=== PATIENT | female | born 1935 | race Caucasian/White ===

== ENCOUNTER → 2016-07-11 | Outpatient (CLI) | payer MEDICARE ==
[2016-07-11 12:49] LABS: CHCM 33.4; HCT 39.6 % (34.0-46.0); HDW 2.36; HGB 13.7 gm/dL (11.4-16.0); MCH 31.2 pg (25.0-35.0); MCHC 34.5 g/dL (31.0-37.0); MCV 90.2 fL (80.0-100.0); RBC 4.39 m/uL (3.80-5.40); RDW 12.6 % (11.5-15.5); WBC 7.4 k/uL (3.8-10.6)
[2016-07-11 12:56] LABS: ALT 25 U/L (9-52); AST 19 U/L (14-36); Alkaline Phosphatase 59 U/L (38-126); Anion Gap 9 mmol/L; Blood Urea Nitrogen 22 mg/dL (7-17); Calcium 9.8 mg/dL (8.4-10.2); Carbon Dioxide 27 mmol/L (22-30); Chloride 103 mmol/L (98-107); Cholesterol 223 mg/dL (<200); Glucose 107 mg/dL (74-99); HDL Cholesterol 67 mg/dL (40-60); Non-African American GFR(MDRD) >60 (>60 ml/min/1.73 sqM); Potassium 4.5 mmol/L (3.5-5.1); Sodium 139 mmol/L (137-145); Total Bilirubin 0.8 mg/dL (0.2-1.3); Total Protein 7.3 g/dL (6.3-8.2); Triglycerides 109 mg/dL (<150)
[2016-07-11 16:01] LABS: Hemoglobin A1C 6.2 % (4.2-6.1)
--- NOTE | 2016-07-11 22:41 | WWHP ---
CHIEF COMPLAINT: Patient is here for her routine gynecologic exam and mammogram. HPI: This is a 80-year-old G4, P3-0-1-3 with an LMP of 1988. The patient is without gynecologic complaints and denies any postmenopausal bleeding. PAST MEDICAL HISTORY: Chronic hypertension, borderline diabetes, hyperlipidemia and osteopenia. MEDICATIONS: 1. Calcium supplement 500 mg b.i.d. 2. Vitamin D3 1000 units daily. 3. Lisinopril 1 daily. 4. Magnesium supplement 250 mg daily. 5. Metamucil daily p.r.n. ALLERGIES: No known drug allergies. Past surgical, TELEMETRY MONITOR histories are unchanged from the 2015 H&P. SOCIAL HISTORY: She denies tobacco, alcohol and drug use. She has been since 1956 and is not sexually active. FAMILY HISTORY: Brother had leukemia and melanoma. Another brother had diabetes and ND. Mother had gastric cancer. Sister had uterine cancer and diabetes. REVIEW OF SYSTEMS: She has gained 8 pounds over the last year. She denies respiratory, cardiac or GI problems. She denies maltreatment or falling. : She denies any significant urinary leakage, but occasionally has to get to the bathroom right away. PHYSICAL EXAM: Blood pressure 113/74. Height 5 feet 1/2 inch. Weight 158 pounds. Temperature 98.4, pulse 77. This is a well-developed, well-nourished white female who is alert and oriented x3, in no acute distress. HEENT is within normal limits. NECK: Supple without mass or thyromegaly. CHEST AND LUNGS: Clear to auscultation. HEART: Regular rate and rhythm. Breasts are without mass or discharge. There is central nipple inversion on both sides which she has had for many years. Axillary is negative for adenopathy. BACK: Negative for CVA tenderness. ABDOMEN: Soft, nontender, without palpable masses. PELVIC: External genitalia reveal moderate atrophy without lesions. Cervix and vagina reveal moderate atrophy without lesions. The uterus is midposition, nongravid size and nontender. There are no palpable adnexal masses or tenderness. Rectovaginal is negative for mass or tenderness and is negative for occult blood. EXTREMITIES: Nontender. IMPRESSION: 1. A 80-year-old menopausal female with moderate genital atrophy and otherwise unremarkable gynecologic exam. 2. Multiple medical problems. 3. History of osteopenia. PLAN: 1. Pap smear was deferred, since she had normal one less than 2 years ago. 2. Self-breast examination was discussed. 3. Mammogram will be done today. 4. The patient is requesting screening labs which she has routinely done here. This will include CBC, hemoglobin A1c, comprehensive chem panel, lipid profile and TSH. 5. She does get flu shots in the fall. 6. She will return in 1 year.
--- NOTE | 2016-07-12 11:57 | MM ---
Reason for exam: screening (asymptomatic). Last mammogram was performed 1 year and 5 months ago. History: Patient is postmenopausal. Physical Findings: A clinical breast exam by your physician is recommended on an annual basis and results should be correlated with mammographic findings. MG 3D Screening Mammo W/Cad Bilateral CC and MLO view(s) were taken. Prior study comparison: January 26, 2015, bilateral MG screening mammo w CAD. January 19, 2014, bilateral MG screening mammo w CAD. January 13, 2013, bilateral digital screening mammo w/CAD. There are scattered fibroglandular densities. No significant changes when compared with prior studies. ASSESSMENT: Negative, BI-RAD 1 RECOMMENDATION: Routine screening mammogram of both breasts in 1 year.
== END ==
LOC: WWCWWP 10:14
PROVIDERS: ATTEND Obstetrics & Gynecology
DX: Z12.31 Encounter for screening mammogram for malignant neoplasm of breast (principal); E11.9 Type 2 diabetes mellitus without complications; E78.5 Hyperlipidemia, unspecified; Z00.00 Encounter for general adult medical examination without abnormal findings
CPT/HCPCS: 80061; 80053; 84443; 83036; 85027; 77063; G0202

== ENCOUNTER → 2017-12-31 | Outpatient (CLI) | payer MEDICARE ==
[2017-12-31 11:19] VITALS: BP 123/60; PULSE 70; TEMP 96.6; BMI 28.3
--- NOTE | 2017-12-31 12:06 | P.HPOB ---
History of Present Illness H&P Date: 12/31/17 Chief Complaint: The patient is here for her routine gynecologic exam and mammogram. This is an 82-year-old with an LMP of 1988. The patient is without gynecologic complaints and denies any postmenopausal bleeding. Review of Systems She has lost 8 pounds over the last year. She denies respiratory, cardiac and G.I. problems. She denies maltreatment or problems with falling. : she denies any significant problems with urinary leakage, but sometimes has to get to the bathroom right away. Past Medical History Past Medical History: Diabetes Mellitus (Type II diabetes), Hyperlipidemia, Hypertension Additional Past Medical History / Comment(s): History of osteopenia. 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 History of Any Multi-Drug Resistant Organisms: None Reported Past Surgical History: Section (x3), Cholecystectomy Additional Past Surgical History / Comment(s): Benign neck cyst removed. Colonoscopy 2007 (4th). Past Psychological History: No Psychological Hx Reported Smoking Status: Never smoker Past Alcohol Use History: None Reported Past Drug Use History: None Reported Additional History: She is been a since April 2017. - Past Family History Brother(s) Family Medical History: Cancer (Leukemia) Additional Family Medical History / Comment(s): Another brother has diabetes. Mother Family Medical History: Cancer (Gastric) Sister(s) Family Medical History: Cancer (Uterine cancer), Diabetes Mellitus Medications and Allergies Home Medications Medication Instructions Recorded Confirmed Type Calcium Carbonate 500 mg PO BID 12/31/17 12/31/17 History Cholecalciferol [Vitamin D3] 1,000 unit PO DAILY 12/31/17 12/31/17 History Lisinopril [Zestril] 1 tablet PO DAILY 12/31/17 12/31/17 History Magnesium Oxide [Mag-Ox] 250 mg PO BID 12/31/17 12/31/17 History Allergies Allergy/AdvReac Type Severity Reaction Status Date / Time No Known Allergies Allergy Verified 12/31/17 12:02 Exam Vital Signs Temp Pulse BP 12/31/17 11:16 96.6 F L 70 123/60 Intake and Output 12/30/17 12/31/17 12/31/17 22:59 06:59 14:59 Other: Weight 68.039 kg Height 5'1", BMI 28.3. This is a well-developed well-nourished white female who is alert and oriented times 3 in no acute distress. HEENT: Within normal limits. NECK: Supple without mass or thyromegaly. CHEST AND LUNGS: Clear to auscultation. HEART: Regular rate and rhythm. BREASTS: Are without mass or discharge. There is bilateral central nipple inversion which she states has been this way for many years. AXILLARY EXAM: Negative for adenopathy. BACK: Negative for CVA tenderness. ABDOMEN: Soft, mildly obese, nontender, without palpable masses. PELVIC EXAM: Normal external genitalia moderate atrophy. Cervix and vagina appear normal with moderate atrophy. There is no unusual discharge. There is no evidence of prolapse. The uterus is midposition, nongravid size and nontender. There are no palpable adnexal masses or tenderness. RECTAL EXAM: rectovaginal exam is negative for mass or tenderness and is negative for occult blood. EXTREMITIES: Nontender. IMPRESSION: 1. 82-year-old menopausal female with normal gynecologic exam with moderate genital atrophy. 2. Multiple medical problems. 3. History of osteopenia. PLAN: 1. Pap smear was performed. 2. Self breast awareness was discussed with the patient. 3. Screening mammogram will be done today. 4. Osteoporosis prevention was discussed. Bone density testing will be done today. 5. The patient is requesting screening blood work to be done today. This will include CBC, hemoglobin A-1 C, comprehensive chem panel, lipid profile, and TSH. She is fasting. 6. I have recommended screening colonoscopy since it is been 10 years. She would like to discuss this with Dr. Rosario and Dr. Macdonald. 7. She is planning to get her flu shot in the near future. 8. She will return in one year.
--- NOTE | 2017-12-31 14:08 | BD ---
EXAMINATION TYPE: Axial Bone Density DATE OF EXAM: 12/31/2017 Comparison: Prior DEXA bone scan January 26, 2015 CLINICAL HISTORY: Height: 59.5 inches Weight: 150 FRAX RISK QUESTIONS: Alcohol (3 or more units per day): no Family History (Parent hip fracture): no Glucocorticoids (More than 3mos): no (Ex: prednisone, prednisolone, methylprednisolone, dexamethasone, and hydrocortisone). History of Fracture in Adulthood: yes Secondary Osteoporosis: 1. Type 1 Diabetes: no 2. Hyperthyroidism: no 3. Menopause before 45: no 4. Malnutrition: no 5. Chronic liver disease: no Rheumatoid Arthritis: no Current Tobacco Use: no RISK FACTORS HISTORY OF: Family History of Osteoporosis: not to patient's knowledge Active: yes Diet low in dairy products/other sources of calcium: no Postmenopausal woman: yes Take estrogen and/or progesterone medications: no Lost more than 2 inches in height since high school: unsure Frequent falls: no Poor Health: no Hyperparathyroidism: no Adrenal Insufficiency: no MEDICATIONS: Prednisone or other steroids: no Thyroid Medications:no Osteoporosis Medications: no Additional Medications: calcium & Vitamin D , blood pressure med Additional History: Post menopausal EXAM MEASUREMENTS: Bone mineral densitometry was performed using the [employer]. Bone mineral density as measured about the Lumbar spine is: ----- L1-L4(G/cm2): 1.331 T Score Values are as follows: ----- L2: 1.1 ----- L3: 1.3 ----- L4: 2.1 ----- L1-L4: 1.3 Bone mineral density has: Increased 1.0% since study of: 01/26/2015 Bone mineral density about the R hip (g/cm2): 0.755 Bone mineral density about the L hip (g/cm2)0.806: T Score values are as follows: -----R Neck: -2.0 -----L Neck: -1.7 -----R Total: -1.1 -----L Total: -0.7 Bone mineral density has: Decreased -3.8% since study of: 01/26/2015 IMPRESSION: Osteopenia (T Score between -2.5 and -1) remains present in both hips. Bone density felt falsely elev ated and low back due to reactive sclerosis. There remains slightly increased risk of fracture and the patient may be considered for treatment. Re-Screen 2-5 years. NOTE: T-SCORE=SD OF THE YOUNG ADULT MEAN.
[2017-12-31 14:32] LABS: HCT 41.1 % (34.0-46.0); HGB 13.5 gm/dL (11.4-16.0); MCH 29.8 pg (25.0-35.0); MCHC 32.8 g/dL (31.0-37.0); MCV 90.8 fL (80.0-100.0); Mean Platelet Volume 7.5; Platelet Count 218 k/uL (150-450); RBC 4.53 m/uL (3.80-5.40); RDW 13.1 % (11.5-15.5); WBC 7.9 k/uL (3.8-10.6)
[2017-12-31 15:22] LABS: Calcium 9.5 mg/dL (8.4-10.2); Potassium 4.5 mmol/L (3.5-5.1); Total Bilirubin 0.7 mg/dL (0.2-1.3)
[2017-12-31 20:57] LABS: Hemoglobin A1C 6.3 % (4.0-6.0)
--- NOTE | 2018-01-01 11:32 | MM ---
Reason for exam: screening (asymptomatic). Last mammogram was performed 1 year and 6 months ago. History: Patient is postmenopausal. Physical Findings: A clinical breast exam by your physician is recommended on an annual basis and results should be correlated with mammographic findings. MG 3D Screening Mammo W/Cad Bilateral CC and MLO view(s) were taken. Prior study comparison: July 11, 2016, bilateral MG 3d screening mammo w/cad. January 26, 2015, bilateral MG screening mammo w CAD. There are scattered fibroglandular densities. No significant changes when compared with prior studies. ASSESSMENT: Benign, BI-RAD 2 RECOMMENDATION: Routine screening mammogram of both breasts in 1 year.
== END | disposition home or self-care (01) ==
LOC: WWCWWP 10:06
PROVIDERS: ATTEND Obstetrics & Gynecology
DX: Z12.31 Encounter for screening mammogram for malignant neoplasm of breast (principal); M85.852 Other specified disorders of bone density and structure, left thigh; M85.851 Other specified disorders of bone density and structure, right thigh; Z78.0 Asymptomatic menopausal state; Z00.00 Encounter for general adult medical examination without abnormal findings; E78.5 Hyperlipidemia, unspecified; E11.9 Type 2 diabetes mellitus without complications; I10 Essential (primary) hypertension
CPT/HCPCS: 36415; 77063; 77067; 77080; 80053; 80061; 83036; 84443; 85027

== ENCOUNTER → 2019-01-07 | Outpatient (CLI) | payer MEDICARE ==
[2019-01-07 10:13] VITALS: BP 117/76; PULSE 74; RESP 18; TEMP 97.7; BMI 28.5
--- NOTE | 2019-01-07 11:32 | P.HPOB ---
History of Present Illness H&P Date: 01/07/19 Chief Complaint: The patient is here for her routine gynecologic exam and ma mmogram. This is an 83-year-old 013 with an LMP of 1988. The patient is without gynecologic complaints and denies any postmenopausal bleeding. Review of Systems Weight has been stable. She denies respiratory, cardiac and G.I. problems. She denies maltreatment or problems with falling. : she denies any significant problems with urinary leakage. She states occasionally she has to get to the bathroom right away. Past Medical History Past Medical History: Diabetes Mellitus, Hyperlipidemia, Hypertension Additional Past Medical History / Comment(s): Type 2 diabetes .History of osteopenia. 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 History of Any Multi-Drug Resistant Organisms: None Reported Past Surgical History: Section, Cholecystectomy Additional Past Surgical History / Comment(s): Benign neck cyst removed. Colonoscopy 2007 (4th). Past Psychological History: No Psychological Hx Reported Smoking Status: Never smoker Past Alcohol Use History: None Reported Past Drug Use History: None Reported Additional History: She has been a since 2018 and has not been sexually a ctive for many years. She lives on her own. - Past Family History Brother(s) Family Medical History: Cancer Additional Family Medical History / Comment(s): Leukemia. Another brother has diabetes. Mother Family Medical History: Cancer Additional Family Medical History / Comment(s): Gastric cancer. Sister(s) Family Medical History: Cancer, Diabetes Mellitus Additional Family Medical History / Comment(s): Uterine cancer. Medications and Allergies Home Medications Medication Instructions Recorded Confirmed Type Calcium Carbonate 500 mg PO BID 12/31/17 01/07/19 History Cholecalciferol [Vitamin D3] 1,000 unit PO DAILY 12/31/17 01/07/19 History Lisinopril [Zestril] 1 tablet PO DAILY 12/31/17 01/07/19 History Magnesium Oxide [Mag-Ox] 250 mg PO BID 12/31/17 01/07/19 History Allergies Allergy/AdvReac Type Severity Reaction Status Date / Time No Known Allergies Allergy Verified 01/07/19 10:13 Exam Vital Signs Temp Pulse Resp BP Pulse Ox 01/07/19 10:07 97.7 F 74 18 117/76 96 Intake and Output 01/06/19 01/07/19 01/07/19 22:59 06:59 14:59 Other: Weight 68.492 kg Height 5 feet 1 inch, weight 151 pounds, BMI 28.5. This is a well-developed well-nourished white female who is alert and oriented times 3 in no acute distress. HEENT: Within normal limits. NECK: Supple without mass or thyromegaly. CHEST AND LUNGS: Clear to auscultation. HEART: Regular rate and rhythm. BREASTS: Are without mass or discharge. AXILLARY EXAM: Negative for adenopathy. BACK: Negative for CVA tenderness. ABDOMEN: Soft, nontender, without palpable masses. PELVIC EXAM: Normal external genitalia with moderate atrophy. Cervix and vagina appear normal is moderate atrophy. There is no unusual discharge. There is no evidence of prolapse. The uterus is atrophic, midposition, nongravid size and nontender. There are no palpable adnexal masses or tenderness. RECTAL EXAM: She has noninflamed external hemorrhoids. Rectovaginal exam is negative for mass or tenderness and is negative for occult blood. EXTREMITIES: Nontender. IMPRESSION: 1. 83-year-old menopausal female with normal gynecologic exam. 2. History of osteopenia. PLAN: 1. Pap smears have been discontinued since she has had adequate screening(neg 2017,2015,2013,2010), no history of cervical problems and is greater than 65 years of age. 2. Self breast awareness was discussed with the patient. 3. Screening mammogram will be done today. 4. Osteoporosis prevention was discussed. I have stressed the importance of adequate calcium, vitamin D and regular exercise. Recommended amounts of calcium and vitamin D were also discussed. Bone density testing will be done in 1-2 years since her last one was done on 12/31/2017. 5. The patient is requesting screening blood work. This will be drawn today and will include CBC, hemoglobin A1c, comprehensive chem panel, lipid profile, and TSH. She has fasted for the last 12 hours. She has an appointment with Dr. Rosario, her primary care physician, in one week. She states she will go over the test results with Dr. Rosario. 6. I have recommended screening colonoscopy since it has been about 11 years since her last one. She will discuss this with Dr. Rosario to review her options for colorectal screening. 7. She did receive her flu shot this fall. 8. The patient was advised to return in 1-2 years for her well woman examination.
[2019-01-07 14:00] LABS: HCT 41.7 % (34.0-46.0); MCH 28.5 pg (25.0-35.0); MCHC 31.3 g/dL (31.0-37.0); Mean Platelet Volume 6.6; Platelet Count 239 k/uL (150-450); RBC 4.58 m/uL (3.80-5.40)
[2019-01-07 18:36] LABS: African American GFR (CKD) 54.5 (60.0-200.0); Albumin 4.5 g/dL (3.80-4.90); Albumin/Globulin Ratio 2.05 (1.60-3.17); Anion Gap 6.4 mmol/L (4.00-12.00); BUN/Creat Ratio 24.55 Ratio (12.00-20.00); Calcium 9.9 mg/dL (8.7-10.3); Carbon Dioxide 28.6 mmol/L (21.6-31.8); Chol/HDL Ratio 3.67; Globulin 2.2 g/dL (1.6-3.3); LDL Cholesterol,Calculated 126.8 mg/dL (0.0-131.0); Potassium 4.9 mmol/L (3.5-5.5); Total Bilirubin 0.6 mg/dL (0.3-1.2); Total Protein 6.7 g/dL (6.2-8.2); VLDL Calculation 28.2 mg/dL (5.00-40.00)
[2019-01-07 20:10] LABS: Hemoglobin A1C 6.6 % (4.0-6.0)
--- NOTE | 2019-01-09 10:45 | MM ---
Reason for exam: screening (asymptomatic). Last mammogram was performed 1 year ago. History: Patient is postmenopausal. Physical Findings: A clinical breast exam by your physician is recommended on an annual basis and results should be correlated with mammographic findings. MG 3D Screening Mammo W/Cad Bilateral CC and MLO view(s) were taken. Prior study comparison: December 31, 2017, bilateral MG 3d screening mammo w/cad. July 11, 2016, bilateral MG 3d screening mammo w/cad. There are scattered fibroglandular densities. No significant changes when compared with prior studies. ASSESSMENT: Benign, BI-RAD 2 RECOMMENDATION: Routine screening mammogram of both breasts in 1 year.
--- NOTE | 2019-01-14 14:08 | P.PN ---
Progress Note - Text Progress Note Date: 01/14/19 OUTPATIENT FOLLOW-UP NOTE TEST(S)/RESULTS: Test results from 01/07/2019 include benign mammogram. Multiple screening blood tests were also done. METHOD OF NOTIFICATION: A message was left on the patient's voice mail with the benign mammogram result. I have also notified her that her blood tests results will be sent to Dr. Rosario as we had previously discussed. PATIENT COMMENTS: DIAGNOSIS: Benign mammogram. Screening blood tests are complete. DISCUSSION: The patient had requested screening blood tests so she could have them done when she sees Dr. Rosario, her primary care physician. PLAN: We will send the blood test results to Dr. Rosario. The patient was advised to return in 1-2 years for her well woman examination.
== END | disposition home or self-care (01) ==
LOC: WWCWWP 09:50
PROVIDERS: ATTEND Obstetrics & Gynecology
DX: Z12.31 Encounter for screening mammogram for malignant neoplasm of breast (principal); Z00.00 Encounter for general adult medical examination without abnormal findings; E11.9 Type 2 diabetes mellitus without complications
CPT/HCPCS: 77063; 77067; 80053; 80061; 83036; 84443; 85027

== ENCOUNTER → 2020-12-28 | Outpatient (CLI) | payer MEDICARE ==
[2020-12-28 10:28] VITALS: BP 95/60; PULSE 67; RESP 18; TEMP 98.1
--- NOTE | 2020-12-28 11:38 | P.HPOB ---
History of Present Illness H&P Date: 12/28/20 Chief Complaint: The patient is here for her routine gynecologic exam and ma mmogram. This is an 85-year-old 013 with an LMP of 1988. The patient is without gynecologic complaints and denies any postmenopausal bleeding. Review of Systems She has lost about 6 pounds over the past 2 years. She denies respiratory or cardiac problems. GI: She has been having some issues with hemorrhoids that can bleeding after a hard bowel movement. She has been using some suppositories for this which have helped. She denies maltreatment or problems with falling. : She denies any significant problem with leakage, however occasionally she has to get to the bathroom right away. Past Medical History Past Medical History: Diabetes Mellitus, Hyperlipidemia, Hypertension Additional Past Medical History / Comment(s): Borderline Type 2 diabetes .History of osteopenia. 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 History of Any Multi-Drug Resistant Organisms: None Reported Past Surgical History: Section, Cholecystectomy Additional Past Surgical History / Comment(s): Benign neck cyst removed. Colon oscopy 2007 (4th). Past Psychological History: No Psychological Hx Reported Smoking Status: Never smoker Past Alcohol Use History: None Reported Past Drug Use History: None Reported Additional History: She has been a since 2018 and has not been sexually active for many years. She lives on her own. - Past Family History Brother(s) Family Medical History: Cancer Additional Family Medical History / Comment(s): Leukemia. Another brother has diabetes. Mother Family Medical History: Cancer Additional Family Medical History / Comment(s): Gastric cancer. Sister(s) Family Medical History: Cancer, Diabetes Mellitus Additional Family Medical History / Comment(s): Uterine cancer. Medications and Allergies Home Medications Medication Instructions Recorded Confirmed Type Calcium Carbonate 500 mg PO BID 12/31/17 12/28/20 History Cholecalciferol [Vitamin D3] 1,000 unit PO DAILY 12/31/17 12/28/20 History Magnesium Oxide [Mag-Ox] 250 mg PO BID 12/31/17 12/28/20 History lisinopriL [Zestril] 1 tablet PO DAILY 12/31/17 12/28/20 History Allergies Allergy/AdvReac Type Severity Reaction Status Date / Time No Known Allergies Allergy Verified 12/28/20 10:14 Exam Vital Signs Temp Pulse Resp BP Pulse Ox 12/28/20 10:18 98.1 F 67 18 95/60 97 Intake and Output 12/27/20 12/28/20 12/28/20 22:59 06:59 14:59 Other: Weight 65.771 kg Height 4 feet 11-1/2 inches, weight 145 pounds, BMI 28.8. This is a well-developed well-nourished white female who is alert and oriented times 3 in no acute distress. HEENT: Within normal limits. NECK: Supple without mass or thyromegaly. CHEST AND LUNGS: Clear to auscultation. HEART: Regular rate and rhythm. BREASTS: Are without mass or discharge. There is bilateral nipple inversion which the patient states she has had for many years. AXILLARY EXAM: Negative for adenopathy. BACK: Negative for CVA tenderness. ABDOMEN: Soft, mildly obese, nontender, without palpable masses. PELVIC EXAM: Normal external genitalia with moderate atrophy. Cervix and vagina appear normal with moderate atrophy. There is no unusual discharge. There is no evidence of prolapse. The uterus is midposition, nongravid size and nontender. There are no palpable adnexal masses or tenderness. RECTAL EXAM: There are moderate external hemorrhoids which are noninflamed and nontender. Rectovaginal exam is negative for mass or tenderness and is negative for occult blood. EXTREMITIES: Nontender. IMPRESSION: 1. 85-year-old menopausal female with normal gynecologic exam. 2. History of osteopenia. 3. Intermittently symptomatic hemorrhoids. PLAN: 1. Pap smears have been discontinued. 2. Self breast awareness was discussed with the patient. We have also discussed symptoms associated with inflammatory breast cancer. 3. Screening mammogram will be done today. 4. Osteoporosis prevention was discussed. I have stressed the importance of adequate calcium, vitamin D and regular exercise. Recommended amounts of calcium and vitamin D were also discussed. I have recommended bone density testing since her last one was 3 years ago. [facility] 5. She has completed her Covid vaccination series. 6. We have discussed ketal exercises and how to do them and doing days may help with her occasional urinary urgency. 7. The patient is requesting to have routine blood work done. She wants to have this drawn today and she states she will follow up with her PCP, Dr. Rosario, in the near future. This will be drawn today including fasting lipid profile, CBC, hemoglobin A1c, comprehensive chem panel, and TSH. 8. The patient was advised to return in 1-2 years for her well woman examination.
[2020-12-28 12:45] LABS: HCT 37.2 % (34.0-46.0); HGB 12.7 gm/dL (11.4-16.0); MCH 30.9 pg (25.0-35.0); MCHC 34.1 g/dL (31.0-37.0); MCV 90.5 fL (80.0-100.0); Mean Platelet Volume 7.6; Platelet Count 224 k/uL (150-450); RBC 4.11 m/uL (3.80-5.40); WBC 7.2 k/uL (3.8-10.6)
[2020-12-29 11:06] LABS: African American GFR (CKD) 60.7 (60.0-200.0); Albumin 4.2 g/dL (3.8-4.9); Albumin/Globulin Ratio 1.81 (1.60-3.17); Anion Gap 11.7 mmol/L (4.00-12.00); BUN/Creat Ratio 21.21 Ratio (12.00-20.00); Blood Urea Nitrogen 21.1 mg/dL (9.0-27.0); Calcium 9.5 mg/dL (8.7-10.3); Carbon Dioxide 21.7 mmol/L (21.6-31.8); Chol/HDL Ratio 3.65 Ratio; Globulin 2.3 g/dL (1.6-3.3); HDL Cholesterol 57.3 mg/dL (40.00-60.00); LDL Cholesterol,Calculated 124.9 mg/dL (0.0-131.0); Non-African American GFR(CKD) 52.4 (60.0-200.0); Potassium 4.4 mmol/L (3.5-5.5); Total Bilirubin 0.5 mg/dL (0.30-1.20); Total Protein 6.5 g/dL (6.2-8.2); VLDL Calculation 26.8 mg/dL (5.00-40.00)
--- NOTE | 2020-12-30 11:10 | MM ---
Reason for exam: screening (asymptomatic). Last mammogram was performed 2 years ago. History: Patient is postmenopausal. Physical Findings: A clinical breast exam by your physician is recommended on an annual basis and results should be correlated with mammographic findings. MG 3D Screening Mammo W/Cad Bilateral CC and MLO view(s) were taken. Prior study comparison: January 07, 2019, bilateral MG 3d screening mammo w/cad. December 31, 2017, bilateral MG 3d screening mammo w/cad. July 11, 2016, bilateral MG 3d screening mammo w/cad. There are scattered fibroglandular densities. No significant changes when compared with prior studies. ASSESSMENT: Negative, BI-RAD 1 RECOMMENDATION: Routine screening mammogram of both breasts in 1 year.
== END ==
LOC: WWCWWP 09:18
PROVIDERS: ATTEND Obstetrics & Gynecology
DX: Z12.31 Encounter for screening mammogram for malignant neoplasm of breast (principal); Z01.419 Encounter for gynecological examination (general) (routine) without abnormal findings; E11.9 Type 2 diabetes mellitus without complications; E78.5 Hyperlipidemia, unspecified; I10 Essential (primary) hypertension; Z87.39 Personal history of other diseases of the musculoskeletal system and connective tissue; K64.9 Unspecified hemorrhoids; Z79.899 Other long term (current) drug therapy
CPT/HCPCS: 77063; 77067; 80053; 80061; 83036; 84443; 85027

== ENCOUNTER → 2022-01-30 | Outpatient (CLI) | payer MEDICARE ==
[2022-01-30 10:35] VITALS: BP 110/71; PULSE 73; RESP 17; TEMP 98.1
--- NOTE | 2022-01-30 11:30 | P.HPOB ---
History of Present Illness H&P Date: 01/30/22 Chief Complaint: The patient is here for her routine gynecologic exam and ma mmogram. This is an 86-year-old 013 with an LMP of 1988. The patient is without gynecologic complaints. Review of Systems The patient has gained 5 pounds over the last year. She denies respiratory, cardiac, or G.I. problems. Past Medical History Past Medical History: Diabetes Mellitus, Hyperlipidemia, Hypertension Additional Past Medical History / Comment(s): Borderline Type 2 diabetes .History of osteopenia. PAST MANAGER MERCHANDISE HISTORY: She has no history of STDs. History of Any Multi-Drug Resistant Organisms: None Reported Past Surgical History: Section, Cholecystectomy Additional Past Surgical History / Comment(s): Benign neck cyst removed. Colonoscopy 2007 (4th). Past Psychological History: No Psychological Hx Reported Smoking Status: Never smoker Past Alcohol Use History: None Reported Past Drug Use History: None Reported Additional History: She has been a since 2018. She has not been sexually active for many years. She lives on her own. - Past Family History Brother(s) Family Medical History: Cancer Additional Family Medical History / Comment(s): Leukemia. Another brother has diabetes. Mother Family Medical History: Cancer Additional Family Medical History / Comment(s): Gastric cancer. Sister(s) Family Medical History: Cancer, Diabetes Mellitus Additional Family Medical History / Comment(s): Uterine cancer. Medications and Allergies Home Medications Medication Instructions Recorded Confirmed Type Calcium Carbonate 500 mg PO BID 12/31/17 01/30/22 History Cholecalciferol [Vitamin D3] 1,000 unit PO DAILY 12/31/17 01/30/22 History Magnesium Oxide [Mag-Ox] 250 mg PO BID 12/31/17 01/30/22 History lisinopriL [Zestril] 1 tablet PO DAILY 12/31/17 01/30/22 History Allergies Allergy/AdvReac Type Severity Reaction Status Date / Time No Known Allergies Allergy Verified 01/30/22 10:29 Exam Vital Signs Temp Pulse Resp BP Pulse Ox 01/30/22 10:31 98.1 F 73 17 110/71 98 Intake and Output 01/29/22 01/30/22 01/30/22 22:59 06:59 14:59 Other: Weight 68.039 kg Height 5 foot 1 inch, weight 150 pounds, BMI 28.3. This is a well-developed well-nourished white female who is alert and oriented times 3 in no acute distress. HEENT: Within normal limits. NECK: Supple without mass or thyromegaly. CHEST AND LUNGS: Clear to auscultation. HEART: Regular rate and rhythm. BREASTS: Are without mass or discharge. There is bilateral nipple inversion which the patient states she has had for many years. AXILLARY EXAM: Negative for adenopathy. BACK: Negative for CVA tenderness. ABDOMEN: Soft, nontender, without palpable masses. PELVIC EXAM: Normal external genitalia with moderate atrophy. Cervix and vagina appear normal with moderate atrophy. There is no unusual discharge. There is no evidence of prolapse. The uterus is midposition, atrophic small nongravid size and nontender. There are no palpable adnexal masses or tenderness. RECTAL EXAM: Rectovaginal exam is negative for mass or tenderness and is negative for occult blood. EXTREMITIES: Nontender. IMPRESSION: 1. 86-year-old menopausal female with normal gynecologic exam. 2. History of osteopenia. PLAN: 1. Pap smears have been discontinued. 2. Self breast awareness was discussed with the patient. We have also discussed symptoms associated with inflammatory breast cancer. 3. Screening mammogram will be done today. 4. Osteoporosis prevention was discussed. Bone density testing will be done today. 5. She has completed her Covid vaccination series and has received 2 boosters. 6. The patient was advised to return in 1-2 years for her well woman examination.
--- NOTE | 2022-01-30 12:12 | BD ---
EXAMINATION TYPE: Axial Bone Density DATE OF EXAM: 01/30/2022 COMPARISON: 12/31/2017 CLINICAL HISTORY: 86 years old Female. ICD-10 CODE: Z780 POST MENOPAUSAL WITHOUT HRT Height: 59 Weight: 147 FRAX RISK QUESTIONS: History of Fracture in Adulthood: NO Secondary Osteoporosis: NO Rheumatoid Arthritis: NO Current Tobacco Use: NO RISK FACTORS HISTORY OF: Family History of Osteoporosis: NO Active: YES Diet low in dairy products/other sources of calcium: NO Postmenopausal woman: YES Lost more than 2 inches in height since high school: YES MEDICATIONS: Additional Medications: YES CALCIUM, VIT D , HBP EXAM MEASUREMENTS: Bone mineral densitometry was performed using the [employer] System. Bone mineral density as measured about the Lumbar spine is: ----- L1-L4(G/cm2): 1.281 T Score Values are as follows: ----- L1: 0.5 ----- L2: 0.4 ----- L3: 1.2 ----- L4: 1.2 ----- L1-L4: 0.8 Bone mineral density has: Decreased -5.6% since study of: 12/31/2017 Bone mineral density about the R hip (g/cm2): 0.834 Bone mineral density about the L hip (g/cm2): 0.924 T Score values are as follows: -----R Neck: -1.9 -----L Neck: -1.9 -----R Total: -1.4 -----L Total: -0.7 Bone mineral density has: Decreased -1.2 % since study of: 12/31/2017 FRAX%s: The graph provided illustrates a 15.4% chance for a major osteoporotic fx and a 4.6% chance f or the hips probability for fx in 10 years time. IMPRESSION: Osteopenia (T Score between -2.5 and -1). There is slightly increased risk of fracture and the patient may be considered for treatment. Re-Screen 2-5 years. NOTE: T-SCORE=SD OF THE YOUNG ADULT MEAN.
[2022-01-30 18:30] LABS: HCT 39.5 % (37.2-46.3); HGB 12.6 g/dL (12.0-15.0); MCH 29.2 pg (27.0-32.0); MCHC 31.9 g/dL (32.0-37.0); MCV 91.6 fL (80.0-97.0); Mean Platelet Volume 10.7 fL (9.5-12.2); NRBC Per 100 WBC 0 /100 WBCS (0.0-0.0); Platelet Count 204 X 10*3/uL (140-440); RBC 4.31 X 10*6/uL (4.10-5.20); RDW 13.2 % (11.5-14.5); WBC 6.87 X 10*3/uL (4.50-10.00)
[2022-01-30 19:13] LABS: ALT 11 U/L (8-44); AST 17 U/L (13-35); Albumin/Globulin Ratio 1.54 (1.60-3.17); Alkaline Phosphatase 54 U/L (41-126); BUN/Creat Ratio 18.81 Ratio (12.00-20.00); Blood Urea Nitrogen 20.5 mg/dL (9.0-27.0); Calcium 9.3 mg/dL (8.7-10.3); Carbon Dioxide 26.4 mmol/L (20.0-27.5); Chloride 105 mmol/L (96-109); Chol/HDL Ratio 3.34 Ratio; Globulin 2.6 g/dL (1.6-3.3); Glucose 112 mg/dL (70-110); LDL Cholesterol,Calculated 120.6 mg/dL (0.0-131.0); Non-African American GFR(CKD) 46.6 (60.0-200.0); Potassium 4.3 mmol/L (3.5-5.5); Sodium 140 mmol/L (135-145); Total Protein 6.5 g/dL (6.2-8.2)
--- NOTE | 2022-01-31 08:18 | MM ---
Reason for Exam: Screening (asymptomatic). Last mammogram was performed 1 year(s) and 1 month(s) ago. Patient History: Menarche at age 15. First Full-Term at age 21. Postmenopausal. Risk Values: Patti 5 year model risk: 1.0%. NCI Lifetime model risk: 1.1%. Prior Study Comparison: 12/31/2017 Bilateral Screening Mammogram, [facility]. 01/07/2019 Bilateral Screening Mammogram, [facility]. 12/28/2020 Bilateral Screening Mammogram, [facility]. Tissue Density: There are scattered fibroglandular densities. Findings: Analyzed By CAD. There is no suspicious group of microcalcifications or new suspicious mass in either breast. Overall Assessment: Benign, BI-RAD 2 Management: Screening Mammogram of both breasts in 1 year. A clinical breast exam by your physician is recommended on an annual basis and results should be correlated with mammographic findings. Electronically signed and approved by: Alex Avalos M.D. Radiologis
--- NOTE | 2022-01-31 13:52 | P.PN ---
Progress Note - Text Progress Note Date: 01/31/22 OUTPATIENT FOLLOW-UP NOTE TEST(S)/RESULTS: Test results from 01/30/2022 include benign mammogram and bone density test showing osteopenia. Lab work includes normal BUN and creatinine with a calculated GFR of 47 which is low. Hemoglobin A1c was 7.0. TSH was normal. Lipid profile was okay. CBC was okay. METHOD OF NOTIFICATION: The patient was notified by phone. PATIENT COMMENTS: The patient states her PCP, Dr. Rosario, has received the blood work and she will be following up with her regarding the blood tests. DIAGNOSIS: Benign mammogram and osteopenia. DISCUSSION: I have stressed the importance of adequate calcium, vitamin D, and regular exercise. We will plan on repeating the bone density test in approximately 2-3 years. PLAN: The patient was advised to return in 1-2 years for her well woman examination. As above.
== END ==
LOC: WWCWWP 10:21
PROVIDERS: ATTEND Obstetrics & Gynecology
DX: Z01.419 Encounter for gynecological examination (general) (routine) without abnormal findings (principal); Z12.31 Encounter for screening mammogram for malignant neoplasm of breast; Z78.0 Asymptomatic menopausal state; Z87.39 Personal history of other diseases of the musculoskeletal system and connective tissue
CPT/HCPCS: 77063; 77067; 77080; 80053; 80061; 83036; 84443; 85027

== ENCOUNTER → 2023-07-09 | Outpatient (CLI) | payer MEDICARE ==
[2023-07-09 10:57] VITALS: BP 111/70; PULSE 70; RESP 17; TEMP 97.9
--- NOTE | 2023-07-09 11:55 | P.HPOB ---
History of Present Illness H&P Date: 07/09/23 Chief Complaint: The patient is here for her routine gynecologic exam and ma mmogram. This is an 87-year-old -0-1-3 with an LMP of 1988. Patient is without gynecologic complaints and denies any postmenopausal bleeding. Review of Systems The patient has lost 3 pounds over the last year. She denies respiratory, cardiac, or G.I. problems. Past Medical History Past Medical History: Diabetes Mellitus, Hyperlipidemia, Hypertension Additional Past Medical History / Comment(s): Borderline Type 2 diabetes .History of osteopenia. 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 History of Any Multi-Drug Resistant Organisms: None Reported Past Surgical History: Section, Cholecystectomy Additional Past Surgical History / Comment(s): Benign neck cyst removed. Colonoscopy 2007 (4th). Past Psychological History: No Psychological Hx Reported (PHQ-2 questionaire was given and she scores 0. This is a negative screen for depression.) Smoking Status: Never smoker Past Alcohol Use History: None Reported Past Drug Use History: None Reported Additional History: She has been a since 2018. She has not been sexually active for many years. - Past Family History Brother(s) Family Medical History: Cancer Additional Family Medical History / Comment(s): Leukemia. Another brother has diabetes. Mother Family Medical History: Cancer Additional Family Medical History / Comment(s): Gastric cancer. Sister(s) Family Medical History: Cancer, Diabetes Mellitus Additional Family Medical History / Comment(s): Uterine cancer. Medications and Allergies Home Medications Medication Instructions Recorded Confirmed Type Calcium Carbonate 500 mg PO BID 12/31/17 07/09/23 History Cholecalciferol [Vitamin D3] 1,000 unit PO DAILY 12/31/17 07/09/23 History Magnesium Oxide [Mag-Ox] 250 mg PO BID 12/31/17 07/09/23 History lisinopriL [Zestril] 1 tablet PO DAILY 12/31/17 07/09/23 History Allergies Allergy/AdvReac Type Severity Reaction Status Date / Time No Known Allergies Allergy Verified 07/09/23 10:44 Exam Vital Signs Temp Pulse Resp BP Pulse Ox 07/09/23 10:45 97.9 F 70 17 111/70 97 Intake and Output 07/08/23 07/09/23 07/09/23 22:59 06:59 14:59 Other: Weight 66.678 kg Height 4 feet 9 inches, weight 147 pounds, BMI 31.8. This is a well-developed well-nourished white female who is alert and oriented times 3 in no acute distress. HEENT: There is a palpable skin nodule measuring approximately 1.5 x 1.0 cm in the right cheek area. This is somewhat firm and nontender. There is no erythema. She has noticed this for the past 4 months. She is planning to see a telephone maintenance mechanic for this. NECK: Supple without mass or thyromegaly. CHEST AND LUNGS: Clear to auscultation. HEART: Regular rate and rhythm. BREASTS: Are without mass or discharge. There is bilateral nipple inversion which the patient states she has had for many years AXILLARY EXAM: Negative for adenopathy. BACK: Negative for CVA tenderness. ABDOMEN: Soft, nontender, without palpable masses. PELVIC EXAM: Normal external genitalia with moderate atrophy. Cervix and vagina appear normal with mild to moderate atrophy. There is no unusual discharge. There is no evidence of prolapse. The uterus is midposition, atrophic nongravid size and nontender. There are no palpable adnexal masses or tenderness. RECTAL EXAM: Rectovaginal exam is negative for mass or tenderness and is negative for occult blood. There are moderate external noninflamed hemorrhoids noted. EXTREMITIES: Nontender. IMPRESSION: 1. 87-year-old menopausal female with normal gynecologic exam. 2. History of osteopenia. PLAN: 1. Pap smears have been discontinued. 2. Self breast awareness was discussed with the patient. We have also discussed symptoms associated with inflammatory breast cancer. 3. Screening mammogram will be done today. 4. Osteoporosis prevention was discussed. I have stressed the importance of adequate calcium, vitamin D and regular exercise. Recommended amounts of calcium and vitamin D were also discussed. Osteoporosis prevention was discussed. I have stressed the importance of adequate calcium, vitamin D and regular exercise. Recommended amounts of calcium and vitamin D were also discussed.Rpt Bone density in one year. 5. Depression screening was negative. 6.The patient is requesting screening labs prior to her PCP visit. A1c, comprehensive CHEM panel, CBC, fasting lipid profile, and TSH will be drawn. The order slip was given to the patient for this. 7. She was advised to return in one year for her annual well woman exam.
[2023-07-09 16:02] LABS: HGB 13.8 g/dL (12.0-15.0); MCH 29.1 pg (27.0-32.0); MCHC 32.1 g/dL (32.0-37.0); MCV 90.7 FL (80.0-97.0); Mean Platelet Volume 10.6 FL (9.5-12.2); NRBC Per 100 WBC 0 X 10*3/uL (0.00-0.01); Platelet Count 233 X 10*3/uL (140-440); RBC 4.74 X 10*6/uL (4.10-5.20); RDW 13.1 % (11.5-14.5); WBC 8.94 X 10*3/uL (4.50-10.00)
[2023-07-09 16:27] LABS: ALT 17 U/L (8-44); AST 16 U/L (13-35); Albumin 4.3 g/dL (3.8-4.9); Albumin/Globulin Ratio 1.65 Ratio (1.60-3.17); Alkaline Phosphatase 56 U/L (41-126); BUN/Creat Ratio 21.09 Ratio (12.00-20.00); Blood Urea Nitrogen 23.2 mg/dL (9.0-27.0); Calcium 9.8 mg/dL (8.7-10.3); Carbon Dioxide 26.1 mmol/L (21.6-31.8); Chloride 104 mmol/L (96-109); Chol/HDL Ratio 3.66 Ratio; Globulin 2.6 g/dL (1.6-3.3); Glucose 132 mg/dL (70-110); LDL Cholesterol,Calculated 139.1 mg/dL (0.0-131.0); Potassium 4.6 mmol/L (3.5-5.5); Sodium 140 mmol/L (135-145); Total Bilirubin 0.5 mg/dL (0.3-1.2); Total Protein 6.9 g/dL (6.2-8.2)
--- NOTE | 2023-07-11 09:24 | MM ---
Reason for Exam: Screening (asymptomatic). Last mammogram was performed 1 year(s) and 5 month(s) ago. Patient History: Menarche at age 15. First Full-Term at age 21. Postmenopausal. Risk Values: Patti 5 year model risk: 0.9%. NCI Lifetime model risk: 0.9%. Prior Study Comparison: 01/07/2019 Bilateral Screening Mammogram, [facility]. 12/28/2020 Bilateral Screening Mammogram, [facility]. 01/30/2022 Bilateral MG 3D screening mammo w/cad, [facility]. Tissue Density: There are scattered areas of fibroglandular density. Findings: Analyzed By CAD. Right breast: There is no suspicious group of microcalcifications or new suspicious mass. Benign-appearing calcifications right breast. Left breast: There is no suspicious group of microcalcifications or new suspicious mass. Benign-appearing calcifications left breast. Overall Assessment: Benign, BI-RAD 2 Management: Screening Mammogram of both breasts in [address] [facility] will attempt to contact patient to return for supplemental views and ultrasound if indicated. Patient should continue monthly self-breast exams. A clinical breast exam by your physician is recommended on an annual basis. This exam should not preclude additional follow-up of suspicious palpable abnormalities. Note on Patti scores and lifetime risk: 1. A Patti score greater than 3% is considered moderate risk. If this is the case, consider specialist referral to assess eligibility for a risk reducing agent. 2. If overall lifetime risk for the development of breast cancer is 20% or higher, the patient may qualify for future screening with alternating mammogram and breast MRI. Electronically signed and approved by: Berlin Juarez DO
== END ==
LOC: WWCWWP 09:44
PROVIDERS: ATTEND Obstetrics & Gynecology
DX: Z01.419 Encounter for gynecological examination (general) (routine) without abnormal findings (principal); Z12.31 Encounter for screening mammogram for malignant neoplasm of breast; E11.65 Type 2 diabetes mellitus with hyperglycemia; Z78.0 Asymptomatic menopausal state; Z87.39 Personal history of other diseases of the musculoskeletal system and connective tissue
CPT/HCPCS: 36415; 77063; 77067; 80053; 80061; 83036; 84443; 85027